=== PATIENT | male | born 1950 | race Caucasian/White ===

== ENCOUNTER 2022-02-08 06:18 | Day surgery (SDC) | payer MEDICARE ==
[2022-02-01 15:43] LABS: BASOPHILS % (AUTO) 0.2 % (0-1); EOSINOPHILS # (AUTO) 0.3 X10'3 (0-0.9); EOSINOPHILS % (AUTO) 4.2 % (0-6); LYMPHOCYTES # (AUTO) 1.6 X10'3 (1.1-4.8); LYMPHOCYTES % (AUTO) 24.8 % (21-51); MEAN CORPUSCULAR HGB CONC 33.6 g/dL (33.0-36.5); MEAN CORPUSCULAR VOLUME 86.1 FL (78-98); MEAN PLATELET VOLUME 8.6 FL (7.4-10.4); MONOCYTES # (AUTO) 0.7 X10'3 (0-0.9); MONOCYTES % (AUTO) 11.5 % (2-12); NEUTROPHILS # (AUTO) 3.7 X10'3 (1.8-7.7); NEUTROPHILS % (AUTO) 59.3 % (42-75); PRE OP HEMATOCRIT 37.6 % (42.0-52.0); PRE OP HEMOGLOBIN 12.6 g/dL (14.0-17.9); PRE OP PLATELET COUNT 254 X10'3 (140-440); RED BLOOD COUNT 4.36 X10'6 (4.70-6.10); RED CELL DISTRIBUTION WIDTH 13.4 % (11.5-14.5)
[2022-02-01 15:57] LABS: ALBUMIN 3.9 G/DL (3.4-5.0); ALBUMIN/GLOBULIN RATIO 1.1 (1.1-1.5); ALKALINE PHOSPHATASE 67 IU/L (46-116); BLOOD UREA NITROGEN 19 MG/DL (7-18); BUN/CREATININE RATIO 24.4 (5.4-32.0); CALCIUM 8.8 MG/DL (8.5-10.1); CHLORIDE 108 MMOL/L (99-107); CREATININE 0.78 MG/DL (0.60-1.10); PRE OP ALT 43 U/L (30-65); PRE OP ANION GAP 16 (8-16); PRE OP AST 25 U/L (10-37); PRE OP BILIRUB, TOTAL 0.2 MG/DL (0.0-1.0); PRE OP GLUCOSE 101 MG/DL (70-104); PRE OP POTASSIUM 3.7 MMOL/L (3.4-5.1); PRE OP SODIUM 148 MMOL/L (135-145); TOTAL CARBON DIOXIDE 24.5 MMOL/L (24-32); TOTAL PROTEIN 7.4 G/DL (6.4-8.2); eGFR > 90 ML/MIN
[2022-02-08] VITALS (7 sets, daily range): BP systolic 134–162; BP diastolic 83–102
[~2022-02-08] VITALS: Ht 177.8 cm; Wt 77.1 kg
[~2022-02-08 06:18] MED LIST: GEMF600T89 PO; MELO-100 PO; ceFAZolin inj. 2,000 MG in dextrose 5%-water 100 ML IV ONE; famotidine 20mg tablet PO ONE; ringers solution, lacted 1,000 ML IV SCH
[2022-02-08] MEDS ORDERED: proCHLORperazine 10 MG/2 ml inj IV PRN (08:25)
[2022-02-08] MEDS ORDERED: morphine 4 MG/ML inj SYRINge IV PRN (08:25)
[2022-02-08] MEDS ORDERED: meperidine/PF 25mg/ml syringe IV PRN ×3 (08:25)
[2022-02-08] MEDS ORDERED: ringers solution, lacted 1,000 ML IV SCH (08:25)
[2022-02-08] MEDS ORDERED: morphine 2 MG/ML inj. syringe IV PRN (08:25)
[2022-02-08] MEDS ORDERED: ondansetron/PF 4mg/2ml inj IV PRN (08:25)
[2022-02-08] MEDS ORDERED: BUPIVAcaine/PF 2.5mg/ml (0.25%) 10ml vial ONE (09:42)
[2022-02-08] MEDS ORDERED: midazolam 1 mg/ML 2ml injection ONE (09:57)
[2022-02-08] MEDS ORDERED: fentaNYL/PF 50MCG/1 ML 2ML syringe ONE (09:57)
[2022-02-08] MEDS ORDERED: ketorolac trometh. 30mg/ml inj. ONE (09:59)
--- NOTE | 2022-02-08 10:35 | NUR ---
Received from OR via [facility], accompanied by Anesthesiologist DR ALLEN and report given by Anesthesiolgist. PT PREWNTS WITH PIV 20G RIGH FOREARM, DRESSING ON LWFT AHND/WRIST SCI, VSS. Addendum: 02/08/22 at 1130 by Felicia Banks RN, RN Amended: Links added.
--- NOTE | 2022-02-08 11:04 | NUR ---
PT HAS MET ALL DC CRITERIA. IV DC'D WITH [facility] INTACT. DC INSTRUCTIONS REVIEWED WITH, PT VERBALIZED UNDERSTANDING IWTH NO FURTHER QUESTIONS AT THIS TIME. PT GIVEN ICE PACK AND TAKEN OUT OF HOSPITAL IN WHEELCHAIR TO PRIVATE VEHICLE WHERE DROVE PT HOME. Addendum: 02/08/22 at 1123 by Felicia Banks RN, RN Amended: Links added.
== END 2022-02-08 11:04 | disposition home or self-care (01) ==
LOC: PAS 06:18
PROVIDERS: ATTEND Orthopaedic Surgery Hand Surgery
DX: G56.02 Carpal tunnel syndrome, left upper limb (principal); G47.30 Sleep apnea, unspecified; M19.90 Unspecified osteoarthritis, unspecified site; Z79.899 Other long term (current) drug therapy; Z88.1 Allergy status to other antibiotic agents; Z98.890 Other specified postprocedural states; Z87.891 Personal history of nicotine dependence; Z72.89 Other problems related to lifestyle; Z98.42 Cataract extraction status, left eye
CPT/HCPCS: 36415; 64721; 80053; 82948; 85025; 93005; J0690; J1885; J2250; J3010; J3490; J7030; J7060; J7120; Z7506; Z7512; A4215